=== PATIENT | female | born 1990 | race Caucasian/White ===

== ENCOUNTER → 2023-12-29 12:49 | Outpatient (CLI) | payer OTHER, SELFPAY ==
--- NOTE | ~2023-12-29 | US_ITS ---
EXAMINATION: US venous doppler UE LT DATE: 12/29/2023 13:16 INDICATION: Left upper extremity pain TECHNIQUE: Grayscale ultrasound images without and with compression and Doppler ultrasound images of the left upper extremity veins were obtained. COMPARISON: None. FINDINGS: The left internal jugular vein, subclavian vein, axillary vein, brachial veins, basilic vein, cephali c vein, radial vein, and ulnar vein are patent. IMPRESSION: 1. No evidence of deep venous thrombosis. Reviewed, dictated and finalized at location L. ING ASSISTANT
== END ==
PROVIDERS: PCP Internal Medicine
DX: M79.602 Pain in left arm (principal)
CPT/HCPCS: 93971